=== PATIENT | male | born 1965 | race Caucasian/White ===

== ENCOUNTER 2018-09-15 06:48 | Emergency (ER) | payer OTHER ==
[~2018-09-15] VITALS: Ht 177.8 cm; Wt 90.7 kg
[2018-09-15] MEDS ORDERED: LISINOPRIL10 MG PO (07:14)
[2018-09-15] MEDS ORDERED: NORCO 5-325 TA1 EACH PO (07:50)
[2018-09-15] MEDS ORDERED: KEFLEX500 M1 PO (07:50)
[2018-09-15 08:06] VITALS: BP 134/80
== END 2018-09-15 08:07 | disposition home or self-care (01) ==
LOC: M.ERS 06:48
DX: S61.216A Laceration without foreign body of right little finger without damage to nail, initial encounter (principal); W26.0XXA Contact with knife, initial encounter; Y93.89 Activity, other specified; Y92.89 Other specified places as the place of occurrence of the external cause; Y99.8 Other external cause status; I10 Essential (primary) hypertension